=== PATIENT | female | born 1950 | race Caucasian/White ===

== ENCOUNTER 2016-04-07 13:38 | Observation (INO) | payer MEDICAID ==
[~2016-04-07] VITALS: Ht 165.1 cm; Wt 97.5 kg
[~2016-04-07 13:38] MED LIST: AMOXICILLIN 50500 MG PO; ASPIRIN 81MG TA81 MG PO; AUGMENTIN1 TA2 PO; AZITHROMYCIN250 MG PO; CIPRO 500MG TA500 MG PO; CLARITIN 10MG T10 MG PO; DULERA1 AR1 INH; FLONASE16 GM; FOLIC ACID1 MG PO; HYDROCODONE-APA1 TA1 PO; HYDROXYCHLOROQ200 MG PO; KEFLEX500 M1 PO; LEVOFLOXACIN 5500 MG PO; MEDROL 4MG. DOSE4 MG PO; METHOTREXATE 22.5 MG PO; MUCINEX D 600 M1 TER PO; NICOTINE PATCH;21 MG TD; PRAVASTATIN 40M40 MG PO; PREDNISONE 10MG10 MG PO; PREDNISONE 5MG.5 MG PO; PROMETHAZINE D473 ML PO; PROVENTIL0.09 MG/A1 IH; PYRIDIUM100 MG PO; TESSALON PERLE100 MG PO; TYLENOL ARTHRI650 MG PO; ULTRAM50 MG PO; VALACYCLOVIR1 GM PO; VIBRAMYCIN 100100 MG PO; VICODIN 5/500 T1 TAB PO; ZYRTEC10 MG PO
[2016-04-07 13:42] VITALS: BP 157/96
--- NOTE | 2016-04-07 15:01 | RADIOLOGY REPORT PS360 ---
CT HEAD WITHOUT CONTRAST CT BONE WINDOWS ORDERING PHYSICIAN : Guilherme Mackay MD PATIENT AGE: 65 years GENDER: Female HISTORY: NUMBNESS, TINGLING tingling in the head. Numbness. 2 hours. 65-year-old. PROCEDURE: Routine axial images head with brain & bone windows without contrast COMPARISON: No previous FINDINGS: No acute intracranial findings. No hemorrhage. No mass. No subdural nor extra-axial collection. The ventricles and basal cisterns appear satisfactory. . Minimal cerebral atrophy. . Most evident at sylvian fissure region. Relatively minimal atrophy for age.. The posterior fossa appear satisfactory and unremarkable. CT Bone Windows: The skull is intact. The visualized portions of the paranasal sinuses are clear. Mastoid air cells and middle ear & IACs are unremarkable. IMPRESSION: No acute intracranial findings.
--- NOTE | 2016-04-07 15:38 | Emergency Room Report ---
History of Present Illness Time Seen by 142Carolyn Presenting Problem in Triage Pt arrived:Walked Presenting Problem:PT STATES NUMBNESS TO LIPS, NAUSEA AND HEAD TINGLING. STATES SYMPTOMS BEGAN AN HOUR AGO. DENIES VOMITING. DENIES PREVIOUS EPISODES OR HISTORY OF MIGRAINES. DENIES RECENT ILLNESS. DENIES ANY VISION CHANGES. SPEECH CLEAR. NO DIFFICULTY WITH AMBULATION. DENIES PAIN Onset of symptoms date/time:04/07/16 or onset unknown for: Treatment Prior to Arrival: [employer]ER Provided by: Sepsis Risk Assessment: Temp: 97.5 B/P: 184/88 MAP: 116 Pulse: 78 Resp: 20 Recent fever? N Clinical Suspician of Infection? N Mental Status: 1 - Regular (Normal Baseline) Sepsis Risk:Low Sepsis Risk Have you (or family members/close friends) recently traveled outside the [place]? N If Yes, where/when: Have you had exposure to infectious disease within the past month? N TB? Other? Specify: Source patient, RN notes reviewed, family, old records Exam Limitations no limitations Comment pt with episode of tingling around mouth with assoc nausea and diaphoreis and feels weak with powell with not feeling well with no visual loss or speech or motor loss and no prev episodes Cardiac Chest Pain Chest pain indicative of cardiac No Timing/Duration this afternoon Severity moderate ALLERGIES Coded Allergies: No Known Allergies (02/07/15) Home Medications Active Scripts Cephalexin (Keflex 500MG) 500 MG PO BID 7 Days Prov: 02/09/15 Reported Medications ALBUTEROL (Proventil Hfa Inhaler) 1-2 PUFF IH Q4-6H PRN #1 CAN ASPIRIN (Aspirin) 81 MG PO DAILY Hydroxychloroquine Sulfate (Hydroxychloroquine) 200 MG PO BID Loratadine (Claritin 10MG) 10 MG PO DAILY #30 Fluticasone Prop (Flonase) 1 SPRAY NA QHS History Medical History General CAD? No Angina: No [place]: No Hypertension? Yes Hyperlipidemia? Yes CHF? No DVT? No PE? No COPD? Yes Asthma? No Anemia? No GERD? No Gastric ulcers? No GI Bleed? No Hernia? No Thyroid Problems? No Hypothyroidism? No CVA? No Seizures? No Diabetes? No Renal Insuffiency? Yes End Stage Renal Disease? No UTI? No Stones? No BPH? No GB Disease: No Nephritic Syndrome? No Asplenia? No Hepatitis? No Sickle Cell Disease? No Arthritis? Yes Migraines? No Cataracts? No Glaucoma? No MRSA? No HIV? No TB? No Anxiety? No Depression? No Cancer? No More? Yes Additional hx: RHEUMATOID ARTHRITIS Immunization Hx DT/Tetanus Unknown Flu 02/09/15 Pneumonia Received In Past Surgical Hx Previous Surgery?Y BACK SURG Family History Family Hx Diabetes Yes CAD Yes Hypertension Yes Hyperlipidemia Yes Cancer No TB No Social History Smoking Hx Smoker: Former Smoker Tobacco: No Alcohol Alcohol: No Drugs none Review of Systems All Other Systems Reviewed and Negative Constitutional see HPI, denies fever, weakness Eyes denies blurred vision ENT denies: ear pain, epistaxis, throat pain. Respiratory denies cough, denies shortness of breath, denies wheezing Cardiovascular see HPI, denies chest pain, denies palpitations, denies syncope, other Gastrointestinal denies abdominal pain, denies diarrhea, denies vomiting Genitourinary denies: dysuria, frequency, hesitancy, hematuria. Musculoskeletal denies back pain, denies joint pain, denies joint swelling, denies neck pain Skin denies rash Psychiatric/Neurological see HPI, headache, denies seizure, weakness Physical Exam Vital Signs Vital Signs Date Time Temp Pulse Resp B/P Pulse O2 O2 Flow FiO2 Ox Delivery Rate 04/07 1626 82 20 167/89 98 04/07 1536 78 20 184/88 97 04/07 1430 79 20 16789 97 04/07 1342 97.5 84 20 157/96 97 - WBC >12,000 or <4,000 or 10% bands? 2 or more SIRS Criteria Met? B/P: MAP:116 Creatinine >2.0? UA output<0.5ml/kg/hr for 2 hrs? Platelet count >100,000? Lactate >2.0mmol/1? INR >1.2 or PTT > than 60 sec? Evidence of Organ Dysfunction? Provider documented clinical suspician of infection? N Sepsis Criteria Count: 1 Sepsis Risk: Low Sepsis Risk General Appearance no apparent distress Eye Exam - bilateral eye PERRL, bilateral eye EOMI Ear, Nose, Throat normal ENT inspection Neck supple, carotid bruit Respiratory Status No: respiratory distress. Lung Sounds bilateral: lungs clear. Cardiovascular regular rate/rhythm, systolic murmur Peripheral Pulses Pulses normal Yes Gastrointestinal soft Extremities normal inspection Strength 4 Upper Ext (L), 4 Upper Ext (R), 4 Lower Ext (L), 4 Lower Ext (R) Neurologic alert, remediation consultant II-XII nml as tested, no motor/sensory deficits Glascow Coma Scale Glascow Coma Scale Response Value EYE response: 4 Spontaneously 4 MOTOR response: 6 OBEYS 6 VERBAL response: 5 Oriented & Converses 5 Total 15 Reflexes Reflexes normal No Mental status normal mood/affect Skin no rash cons.w/shingles Medical Decision Making LABS/Meds/Orders Pt receiving controlled substance in ED? No Results/Orders Laboratory Tests 04/07/16 1523: Sodium 141, Potassium 4.0, Chloride 106, Carbon Dioxide 28, BUN 12, Creatinine 1.0, Estimated Creat Clear 89, Estimated GFR (MDRD) 56 L, Glucose 107 H, Calcium 9.1, Total Bilirubin 0.4, AST 21, ALT 30, Alkaline Phosphatase 93, Creatine Kinase 80, CK-MB (CK-2) Rel Index 1.3, CK and CKMB Interp 1.0, Troponin I < 0.02, Total Protein 7.5, Albumin 3.9, Globulin 3.6 H, Albumin/Globulin Ratio 1.1, WBC 5.9, RBC 4.89, Hgb 14.7, Hct 44.2, MCV 90.4, RDW 15.1, Plt Count 180, MPV 10.0, Gran % 61.4, Gran # 3.6, Lymphocytes % 27.3, Monocytes % 6.0, Eosinophils % 4.4, Basophils % 1.0, Lymphocytes # 1.6, Monocytes # 0.4, Eosinophils # 0.3, Basophils # 0.1, PUBS MCHC 33.1, MCH 29.9 Current Medication Orders Sig/Belem Start time Last Medication Dose Route Stop Time Status Admin Sodium Chloride 10 ML PRN PRN 04/07 1530 AC IV 04/08 1520 Orders Procedure Date/time Status DIET-NOTHING BY MOUTH 04/07 D Active Decision to admit 04/07 1629 Active ELECTROCARDIOGRAM REQUEST 04/07 1520 Active IV SALINE LOCK 04/07 1520 Active COMPLETE METABOLIC PANEL 04/07 1520 Complete CBC WITH AUTO DIFF 04/07 1520 Complete CARDIAC ENZYMES 04/[address] HEAD REQ 04/07 1351 Complete CM/EKG CM/aluminum can collector Rhythm Normal Sinus Rhythm EKG non-spec. ST/Twave chgs XRAY/CT/US XRAY/CT/US CT head CT interpretation by discussed w/radiologist Time results known: 1655 CT Results normal/NAD Departure Departure Time of Disposition 162 Disposition Still a Patient Clinical Impression Primary Impression: TIA (transient ischemic attack) Qualifiers: Transient cerebral ischemia type: unspecified Qualified Code: G45.9 - Transient cerebral ischemic attack, unspecified Secondary Impressions: Bilateral carotid bruits, Elevated BP without diagnosis of hypertension Condition STABLE Referrals Thompson BRIONES,Usman Tenorio (Family) ED Critical Care Critical Care No at [id number]
[2016-04-07 15:47] LABS: LYMPH # 1.6 K/mm3 (0.7-4.5); LYMPH % 27.3 % (10-50.0)
[2016-04-07 15:53] LABS: HEMOGLOBIN 14.7 g/dL (12.2-16.2)
[2016-04-07 16:05] LABS: BUN 12 mg/dL (7-18)
[2016-04-07 16:06] LABS: GFR (ESTIMATED) 56 ML/MIN (59-)
[2016-04-07 17:33] VITALS: BP 146/92
[2016-04-07 18:12] VITALS: BP 146/92
[2016-04-07 19:41] VITALS: BP 150/77
[2016-04-07 19:50] LABS: URINE BILIRUBIN - DIPSTICK NEGATIVE (NEG); URINE BLOOD NEGATIVE (NEG)
[2016-04-07 19:57] LABS: URINE RENAL CELLS OCC #/HPF
[2016-04-07 20:40] VITALS: BP 150/77
[2016-04-07 23:47] VITALS: BP 128/61
[2016-04-08] VITALS (8 sets, daily range): BP systolic 114–138; BP diastolic 54–69
[2016-04-08 07:03] LABS: HEMOGLOBIN 13.3 g/dL (12.2-16.2); LYMPH # 1.6 K/mm3 (0.7-4.5); LYMPH % 32.8 % (10-50.0)
--- NOTE | 2016-04-08 09:51 | PHARMACY CLINIC NOTE ---
Patient Demographics Patient Demographics Admission date: 04/07/16 Date: 04/08/16 Time: 0950 Allergies Coded Allergies: No Known Allergies (02/07/15) HEIGHT- FT: 5 IN: 5.00 K.524 VTE General Information Labs: Laboratory Tests 04/08 04/07 0613 1523 Hematology Hgb (12.2 - 16.2 g/dL) 13.3 14.7 Hct (37.0 - 47.0 %) 40.1 44.2 Plt Count (142 - 424 K/mm3) 182 180 Disclaimer The following section includes nursing documentation that has been pulled in for pharmacy review. Patient's VTE score: 3 Patient's VTE Risk: LOW RISK Clinical trial participant? No VTE prophylaxis NQF [id number] VTE prophylaxis ordered? Yes Type of prophylaxis/treatment: STEFANI at 0950
--- NOTE | 2016-04-08 15:33 | HISTORY AND PHYSICAL REPORT ---
Demographics: Admit date: 04/07/16 Chief complaint: possible tia PRIMARY DIAGNOSIS: TIA Allergies: Coded Allergies: No Known Allergies (02/07/15) History of present illness: History of present illness: pt with acute onset of feeling different with nausea and flushed with facial and ext parasthesia and no speech or visual loss and motor loss - has sl assoc powell - has 2 episodes and was seen in ed with neg ct but carotid bruit and concern about possible arrthymia or card event Past medical history: Family HX Family Hx Insignificant Yes Immunization HX DT/Tetanus Unknown Flu 2015-FSN Pneumonia Received In Past TB Test in last year No General CAD? No Angina: No [place]: No Hypertension? Yes Hyperlipidemia? Yes CHF? No DVT? No PE? No COPD? Yes Asthma? No Anemia? No GERD? No Gastric ulcers? No GI Bleed? No Hernia? No Thyroid Problems? No Hypothyroidism? No CVA? No Seizures? No Diabetes? No Renal Insuffiency? Yes UTI? No Stones? No BPH? No GB Disease: No Nephritic Syndrome? No Asplenia? No Hepatitis? No Sickle Cell Disease? No Arthritis? Yes Migraines? No Cataracts? No Glaucoma? No MRSA? No HIV? No TB? No Anxiety? No Depression? No Cancer? No More? Yes Additional hx: RHEUMATOID ARTHRITIS Past Surgical HX Previous Surgery?Y BACK SURG Current home meds: Active Scripts Cephalexin (Keflex 500MG) 500 MG PO BID 7 Days Prov: 02/09/15 Reported Medications ALBUTEROL (Proventil Hfa Inhaler) 1-2 PUFF IH Q4-6H PRN #1 CAN ASPIRIN (Aspirin) 81 MG PO DAILY Hydroxychloroquine Sulfate (Hydroxychloroquine) 200 MG PO BID Loratadine (Claritin 10MG) 10 MG PO DAILY #30 Fluticasone Prop (Flonase) 1 SPRAY NA QHS Social Hx: Smoking HX Tobacco No Are you/the child exposed to second-hand smoke: No Alcohol Alcohol: No Hx of Drug Use Drug Use? No Patien't marital status is Patient's support system is excellent Review of systems: Constitutional No: fever. Eyes No: drainage. Ears, Nose, Mouth, Throat No ear pain, No epistaxis, No throat pain Respiratory No: cough, shortness of breath, wheezing. Cardiovascular No chest pain, No palpitations, No syncope Gastrointestinal/Abdominal No diarrhea, No poor fluid intake Genitourinary No: dysuria, frequency, hesitancy, hematuria. Musculoskeletal No: back pain, joint pain, joint swelling, neck pain. Skin No: rash. Neurological Yes: see HPI, headache, numbness, weakness. No: seizure disorder. Psychiatric No: no symptoms reported. Exam: Lab data for last 24 hours: Laboratory Tests 04/08/16 0613: Sodium 144, Potassium 3.8, Chloride 110 H, Carbon Dioxide 27, BUN 14, Creatinine 0.9, Estimated Creat Clear 98, Estimated GFR (MDRD) 63, Glucose 95, Calcium 8.8, WBC 4.7 L, RBC 4.41, Hgb 13.3, Hct 40.1, MCV 90.9, RDW 15.2, Plt Count 182, MPV 10.1, Gran % 53.8, Gran # 2.5, Lymphocytes % 32.8, Monocytes % 6.9, Eosinophils % 6.0, Basophils % 0.6, Lymphocytes # 1.6, Monocytes # 0.3, Eosinophils # 0.3, Basophils # 0.0, PUBS MCHC 33.1, MCH 30.1 04/07/16 1910: Urine Color YELLOW, Urine Appearance CLEAR, Urine pH 6.0, Ur Specific [place] 1.020, Urine Protein NEGATIVE, Urine Ketones NEGATIVE, Urine Blood NEGATIVE, Urine Nitrate NEGATIVE, Urine Bilirubin NEGATIVE, Urine Urobilinogen 0.2, Ur Leukocyte Esterase NEGATIVE, Urine WBC OCC, Ur Squamous Epith Cells 3-5, Urine Renal Cells OCC, Amorphous Sediment TRACE, Urine Glucose NEGATIVE Admission vital signs: 1ST Vital Signs Result Date Time Pulse Ox 97 04/07 1342 B/P 157/96 04/07 1342 Temp 97.5 04/07 1342 Pulse 84 04/07 1342 Resp 20 04/07 1342 O2 Delivery ROOM AIR 04/07 1733 Exam General appearance: alert, active Eyes: EOM's w/normal ROM, PERRLA ENT: mucous membranes moist Neck: carotid bruit Cardiovascular: no JVD Respiratory: normal breath sounds ABD: soft Genitourinary: no hematuria Extremities: moves all Musculoskeletal: equal muscle strength Skin: dry Neuro: alert, ophthalmic medical technician II-XII nml as tested, no focal deficit Plan: Problem List 1. Bilateral carotid bruits 2. Elevated BP without diagnosis of hypertension 3. TIA (transient ischemic attack) Plan: will do carotid doppler and monitor rhythm and bp with neuro checks at 1535
[2016-04-09] VITALS (7 sets, daily range): BP systolic 105–152; BP diastolic 57–87
--- NOTE | 2016-04-09 12:34 | ACUTE CARE PROGRESS NOTE (QUA) ---
Progress Notes Subjective Date 04/09/16 Time 0830 Patient/family reports: feeling better, no complaints Nursing reports: alert Objective Findings Vital Signs Date Time Temp Pulse Resp B/P Pulse O2 O2 Flow FiO2 Ox Delivery Rate 04/09 1226 97.9 73 20 138/81 97 04/09 0846 97.8 73 22 145/87 99 04/09 0735 97.8 73 22 145/87 99 ROOM AIR 04/09 0343 97.5 75 16 152/76 93 ROOM AIR 04/08 2350 97.8 69 18 135/65 96 ROOM AIR 04/08 2217 97.9 81 20 114/66 97 04/08 1939 97.9 81 20 114/66 97 ROOM AIR 04/08 1533 97.9 77 20 133/69 96 ROOM AIR Current Medications Polyethylene Glycol 17 GM DAILY PO Lisinopril 10 MG DAILY PO Acetaminophen 650 MG Q4HP PRN PO Ondansetron HCl 4 MG Q6HP PRN IV Sodium Chloride 1,000 ML .[id number] IV Sodium Chloride 10 ML PRN PRN IV (DC) Last VS-Temp:97.9 B/P:138/81 Pulse:73 Resp:20 SaO2:97 ROOM AIR Last weight lbs:215 oz:0 K.524 Method:Bed Scales Exam General appearance: normal appearance, alert, awake, no acute distress Eyes: normal exam, PERRLA ENT: normal exam Neck: normal inspection, carotid bruit Cardiovascular: normal exam, regular rate & rhythm Respiratory: normal exam, clear to auscultation ABD: normal exam, soft Genitourinary: normal voiding & quantity Extremities: normal exam, moves all Musculoskeletal: normal exam Skin: normal exam, warm Neuro: normal exam, alert, intact, oriented, speech clear Reviewed: allergies, lab results Assessment/Plan Problem List 1. Bilateral carotid bruits 2. Elevated BP without diagnosis of hypertension 3. TIA (transient ischemic attack) Qualifiers: Transient cerebral ischemia type: unspecified Qualified Code: G45.9 - Transient cerebral ischemic attack, unspecified Patient condition Stable Plan: continue current care This inpt stay is expected to cross 2 MNs from start of care No Comments: rounded with ceci- carotid doppler - bruits poss dc after results at 1234
--- NOTE | 2016-04-09 16:42 | DISCHARGE SUMMARY STANDARD ---
Demographics Admit date: 04/07/16 Discharge date: 04/09/16 History of present illness History of present illness pt with acute onset of feeling different with nausea and flushed with facial and ext parasthesia and no speech or visual loss and motor loss - has sl assoc powell - has 2 episodes and was seen in ed with neg ct but carotid bruit and concern about possible arrthymia or card event Hospital Course Hospital Course: TIA-carotid doppler less than 20 % lorraine, ct scan, monitor vs Discharge diagnoses Problem List 1. Bilateral carotid bruits 2. Elevated BP without diagnosis of hypertension 3. TIA (transient ischemic attack) Medications Medications: Discharge meds are as noted. Follow up Follow up in office in: 7 DAYS with: Ceci BRIONES,Usman Tenorio Comment: rounded with ceci at [id number]
--- NOTE | 2016-04-09 19:11 | CARDIOVASCULAR REPORT ---
"Cerebrovascular Exam Indications: 435.9 Unspecified transient cerebral ischemia. 785.9 Bruit. IMPRESSIONS 1. The bilateral vertebral arteries are patent with normal antegrade flow. 2. Study suggests less than 20% stenosis involving the right internal carotid artery and the left internal carotid artery. History: Risk factors: Hypertension. Carotid duplex study. Complete study and Doppler flow study including spectral analysis, color and combs scale imaging. Height: Height: 165.1cm. Height: 65in. Weight: Weight: 97.5kg. Weight: 214.6lb. Body mass index: BMI: 35.8kg/m^2. Body surface area: BSA: 2.16m^2. Location: Vascular laboratory. Patient status: Inpatient. Tables: Arterial flow: + +--------+--------+ |Location |V sys |V ed | + +--------+--------+ |Right CCA - proximal|74.6cm/s|17.3cm/s| + +--------+--------+ |Right CCA - distal |64.4cm/s|17.3cm/s| + +--------+--------+ |Right ECA |110cm/s |--------| + +--------+--------+ |Right ICA - proximal|86.4cm/s|27.5cm/s| + +--------+--------+ |Right ICA - mid |55.8cm/s|15.7cm/s| + +--------+--------+ |Right ICA - distal |97.4cm/s|28.3cm/s| + +--------+--------+ |Right vertebral |49.5cm/s|--------| + +--------+--------+ |Left CCA - proximal |86.4cm/s|22cm/s | + +--------+--------+ |Left CCA - distal |76.2cm/s|23.6cm/s| + +--------+--------+ |Left ECA |96.6cm/s|--------| + +--------+--------+ |Left ICA - proximal |112cm/s |36.9cm/s| + +--------+--------+ |Left ICA - mid |94.3cm/s|26.7cm/s| + +--------+--------+ |Left ICA - distal |94.3cm/s|36.9cm/s| + +--------+--------+ |Left vertebral |36.9cm/s|--------| + +--------+--------+ Velocity ratios: + + + + + + | |Right, V sys|Right, V ed|Left, V sys|Left, V ed| + + + + + + |Max ICA/dist CCA|1.51 |1.64 |1.47 |1.56 | + + + + + + (Report amended ) Electronically signed by: Elmer Restrepo [id number]"
== END 2016-04-09 17:25 | disposition home or self-care (01) ==
LOC: ER 13:38 → 2ND 16:34 → ER 16:34 → 2ND 17:25
PROVIDERS: Emergency Medicine
DX: R03.0 Elevated blood-pressure reading, without diagnosis of hypertension (principal); G45.9 Transient cerebral ischemic attack, unspecified; R09.89 Other specified symptoms and signs involving the circulatory and respiratory systems
CPT/HCPCS: G0378

== ENCOUNTER → 2016-05-31 | Outpatient (CLI) | payer MEDICAID ==
[2016-05-31 14:07] LABS: BUN 12 mg/dL (7-18)
[2016-05-31 14:12] LABS: GFR (ESTIMATED) 56 ML/MIN (59-)
== END ==
LOC: LAB 12:23
PROVIDERS: Internal Medicine Cardiovascular Disease
DX: G47.33 Obstructive sleep apnea (adult) (pediatric) (principal); I10 Essential (primary) hypertension; E78.5 Hyperlipidemia, unspecified; K21.9 Gastro-esophageal reflux disease without esophagitis

== ENCOUNTER → 2016-10-30 | Outpatient (CLI) | payer MEDICAID ==
[~2016-10-30] MED LIST changes: +BISOPROLOL 5MG T5 MG PO; +HYDROXYZINE HCL25 M1 PO; +PRILOSEC20 M1 PO; +SILVADENE CREAM50 GM TP; +TRIAMCINOLONE0.0251 TP
--- NOTE | 2016-10-30 11:58 | RADIOLOGY REPORT PS360 ---
US RUQ-(ABD LTD)1ORGAN/QUAD/FU HISTORY: RUQ PAIN ORDERING PHYSICIAN: Carroll Winslow PATIENT AGE: 66 years COMPARISON: None FINDINGS: PANCREAS:Unremarkable. No obvious mass or abnormal fluid collection. No ductal dilatation LIVER:No focal liver lesions demonstrated. Homogeneous echogenicity. No intrahepatic biliary ductal dilatation evident RIGHT KIDNEY:Unremarkable. Normal size and echogenicity. No hydronephrosis GALLBLADDER: There is a small area of increased echogenicity within the fundus of the gallbladder may be due to nonshadowing stone or tumefactive sludge. No gallbladder wall thickening, pericholecystic fluid, or biliary dilatation. IMPRESSION: Nonshadowing stone versus tumefactive sludge in the fundus of the gallbladder otherwise negative gallbladder ultrasound
== END ==
LOC: RAD 08:44
DX: R10.11 Right upper quadrant pain (principal)